=== PATIENT | female | born 1995 | race American Indian/Alaskan Native ===

== ENCOUNTER 2017-07-06 13:19 | Emergency (ER) | payer OTHER ==
[2017-07-06 14:19] LABS: HCG Qualitative,Urine Positive (Negative)
--- NOTE | 2017-07-06 15:06 | Emergency Department Report ---
Blank Doc - Documentation Documentation: 21-year-old female presents with her second history of one miscarriage and no living children with complaints of vaginal cramps and bleeding. Patient states that last Thursday the had 5 days of bleeding with some continued intermittent spotting that she thought with her menstrual cycle. She developed some nausea with one episode of vomiting and then took home test yesterday that was positive. Patient recently moved from [place] does not have any local physicians. Urine hCG positive Labs ordered: CBC, hCG Quant, type and screen Ultrasound OB/transvaginal
[2017-07-06 15:35] LABS: Basophils % (Auto) 0.5 % (0.0-1.8); Eosinophils % (Auto) 0.3 % (0.0-4.3); Hematocrit 40.4 % (30.3-42.9); Lymphocytes # (Auto) 1.9 K/mm3 (1.2-5.4); Lymphocytes % (Auto) 31.2 % (13.4-35.0); Mean Corpuscular HGB Conc 32 % (30-34); Mean Corpuscular Hemoglobin 26 pg (28-32); Mean Corpuscular Volume 81 fl (79-97); Monocytes # (Auto) 0.5 K/mm3 (0.0-0.8); Monocytes % (Auto) 8.3 % (0.0-7.3); Platelet Count 223 K/mm3 (140-440); Red Blood Count 4.97 M/mm3 (3.65-5.03); Red Cell Distribution Width 15.7 % (13.2-15.2)
--- NOTE | 2017-07-06 16:52 | Ultrasound Report ---
FINAL REPORT EXAM: US OB < = 14 WEEKS FETUS HISTORY: + hcg vag bleeding TECHNIQUE: Grayscale and color doppler ultrasound imaging of the pelvis was performed transabdominally and transvaginally. PRIORS: None. FINDINGS: Uterus: The uterus is homogeneous in echogenicity without focal mass. The uterus measures 6.1 x 3.0 x 4.0 centimeters. The endometrium is normal in thickness measuring 5 millimeters. There is a 1.6 millimeter diameter focal area of fluid within the endometrial canal. No embryonic pole or yolk sac were seen. Ovaries: Probable 1.9 centimeter corpus luteal cyst is seen in the left ovary. The right ovary is normal. The right ovary measures 4.3 x 2.6 x 3.3 centimeters. The left ovary measures 4.1 x 2.6 x 3.8 centimeters. Free fluid: None. IMPRESSION: Tiny focal area of fluid within the endometrial canal may represent a very early intrauterine versus pseudo sac. Recommend followup pelvic ultrasound and beta HCG.
--- NOTE | 2017-07-06 17:12 | Emergency Department Report ---
ED Female HPI - General Chief complaint: Vaginal Bleeding Stated complaint: +PREG TEST/ABD CRAMPS/BLEEDING Time Seen by Provider: 07/06/17 15:00 Source: patient Mode of arrival: Ambulatory Limitations: No Limitations - History of Present Illness Initial comments: 21-year-old female past medical history none presents with complaint of vaginal spotting and slight crampy lower abdominal pain. The patient is awake alert and oriented 3 fully lucid nontoxic appearing. LMP 06/08/17, pt also reports some bleeding on 06/29/17. . 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 pt denies any vaginal discharge , dysuria, hematuria at this time MD Complaint: vaginal bleeding Onset/Timin -: week(s) Location: suprapubic Quality: cramping Consistency: intermittent, now resolved Are you Now?: Yes Last Menstrual Period: 06/01/17 EDC: 03/08/18 Associated Symptoms: vaginal bleeding - Related Data Sexually active: Yes : 2 Para: 0 Previous Rx's Medication Instructions Recorded Last Taken Type 21/Iron Fu/Folic Acid 1 each PO QDAY #30 tablet 07/06/17 Unknown Rx [ Complete Caplet] Allergies Allergy/AdvReac Type Severity Reaction Status Date / Time No Known Allergies Allergy Unverified 07/06/17 13:38 ED Review of Systems ROS: Stated complaint: +PREG TEST/ABD CRAMPS/BLEEDING Other details as noted in HPI Constitutional: denies: chills, fever Eyes: denies: eye pain, eye discharge, vision change ENT: denies: ear pain, throat pain Respiratory: denies: cough, shortness of breath, wheezing Cardiovascular: denies: chest pain, palpitations Endocrine: no symptoms reported Gastrointestinal: denies: abdominal pain, nausea, diarrhea Genitourinary: denies: urgency, dysuria, discharge Musculoskeletal: denies: back pain, joint swelling, arthralgia Skin: denies: rash, lesions Neurological: denies: headache, weakness, paresthesias Psychiatric: denies: anxiety, depression Hematological/Lymphatic: denies: easy bleeding, easy bruising ED Past Medical Hx - Past Medical History Hx Asthma: Yes Additional medical history: MISCARRIAGE - Surgical History Past Surgical History?: No - Social History Smoking Status: Former Smoker Substance Use Type: None - Medications Home Medications: Home Medications Medication Instructions Recorded Confirmed Last Taken Type 21/Iron Fu/Folic Acid 1 each PO QDAY #30 tablet 07/06/17 Unknown Rx [ Complete Caplet] ED Physical Exam - General Limitations: No Limitations General appearance: alert, in no apparent distress - Head Head exam: Present: atraumatic, normocephalic - Eye Eye exam: Present: normal appearance, PERRL, EOMI - ENT ENT exam: Present: mucous membranes moist - Neck Neck exam: Present: normal inspection - Respiratory Respiratory exam: Present: normal lung sounds bilaterally. Absent: respiratory distress - Cardiovascular Cardiovascular Exam: Present: regular rate, normal rhythm. Absent: systolic murmur, diastolic murmur, rubs, gallop - GI/Abdominal GI/Abdominal exam: Present: soft, normal bowel sounds - External exam: Present: normal external exam Speculum exam: Present: normal speculum exam Bi-manual exam: Present: normal bi-manual exam - Extremities Exam Extremities exam: Present: normal inspection - Back Exam Back exam: Present: normal inspection - Neurological Exam Neurological exam: Present: alert, oriented X3, CN II-XII intact, normal gait - Psychiatric Psychiatric exam: Present: normal affect, normal mood - Skin Skin exam: Present: warm, dry, intact, normal color. Absent: rash ED Course Vital Signs 07/06/17 07/06/17 13:38 17:29 Temperature 98.6 F Pulse Rate 73 96 H Respiratory 18 20 Rate Blood Pressure 125/43 Blood Pressure 137/72 [Left] O2 Sat by Pulse 100 98 Oximetry ED Medical Decision Making - Lab Data Result diagrams: 07/06/17 15:14 - Medical Decision Making A/P: Threatened miscarriage, 1-ultrasound shows possible early IUP or pseudocyst sac, Rh+, hCG level 207 2-I advised the patient that she has a very early but it is not well after advised by ultrasound as of yet. Patient must obtain repeat ultrasound and HCG this week. 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 So before ut Critical care attestation.: If time is entered above; I have spent that time in minutes in the direct care of this critically ill patient, excluding procedure time. ED Disposition Clinical Impression: Threatened Qualifiers: Weeks of gestation: less than 8 weeks Qualified Code(s): Z3A.01 - Less than 8 weeks gestation of Disposition: DC- TO HOME OR SELFCARE Is pt being admited?: No Does the pt Need Aspirin: No Condition: Stable Instructions: Threatened Miscarriage (ED), (ED) Prescriptions: 21/Iron Fu/Folic Acid [ Complete Caplet] 1 each PO QDAY #30 tablet Referrals: [facility] [Provider Group] - 3-5 Days Time of Disposition: 17:16
[2017-07-06 17:30] VITALS: BP 137/72
== END 2017-07-06 17:19 | disposition home or self-care (01) ==
LOC: ED 13:19
DX: O20.0 Threatened abortion (principal); O99.511 Diseases of the respiratory system complicating pregnancy, first trimester; J45.909 Unspecified asthma, uncomplicated; Z3A.01 Less than 8 weeks gestation of pregnancy; Z87.891 Personal history of nicotine dependence
CPT/HCPCS: 36415; 76801; 76817; 81025; 84702; 85025; 86850; 86900; 86901